=== PATIENT | female | born 1990 | race Caucasian/White ===

== ENCOUNTER 2016-05-17 08:00 | Outpatient (CLI) | payer OTHER | END 2016-05-17 08:01 | disposition home or self-care (01) | DX: Z11.3 Encounter for screening for infections with a predominantly sexual mode of transmission (principal) ==

== ENCOUNTER 2016-05-17 11:58 | Outpatient (CLI) | payer OTHER | END 2016-05-17 11:59 | disposition home or self-care (01) | DX: Z36 Encounter for antenatal screening of mother (principal) ==

== ENCOUNTER 2016-05-31 11:53 | Outpatient (CLI) | payer OTHER | END 2016-05-31 11:54 | disposition home or self-care (01) | DX: Z01.89 Encounter for other specified special examinations (principal); Z36 Encounter for antenatal screening of mother ==

== ENCOUNTER 2016-06-07 12:03 | Outpatient (CLI) | payer OTHER | END 2016-06-07 12:04 | disposition home or self-care (01) | DX: Z36 Encounter for antenatal screening of mother (principal) ==

== ENCOUNTER 2016-08-10 09:57 | Outpatient (CLI) | payer OTHER | END 2016-08-10 09:58 | disposition home or self-care (01) | DX: Z36 Encounter for antenatal screening of mother (principal) ==

== ENCOUNTER 2016-09-22 12:50 | Outpatient (CLI) | payer OTHER | END 2016-09-22 12:51 | disposition home or self-care (01) | DX: Z36 Encounter for antenatal screening of mother (principal) ==

== ENCOUNTER 2016-10-01 08:10 | Outpatient (CLI) | payer OTHER ==
[2016-10-01 08:59] LABS: GTT GLUCOSE,FASTING 91 mg/dL (70-100)
== END 2016-10-01 08:11 | disposition home or self-care (01) ==
LOC: LAB 08:10
PROVIDERS: ATTEND Nurse Practitioner Obstetrics & Gynecology
DX: R73.02 Impaired glucose tolerance (oral) (principal)
CPT/HCPCS: 36415; 82951

== ENCOUNTER 2016-11-22 08:00 | Outpatient (CLI) | payer OTHER | END 2016-11-22 08:01 | disposition home or self-care (01) | LOC: LAB.R 08:00 | PROVIDERS: ATTEND Nurse Practitioner Obstetrics & Gynecology | DX: R35.0 Frequency of micturition (principal) | CPT/HCPCS: 87086 ==

== ENCOUNTER 2016-11-29 08:44 | Outpatient (CLI) | payer OTHER | END 2016-11-29 08:45 | disposition home or self-care (01) | LOC: LAB.R 08:44 | PROVIDERS: ATTEND Nurse Practitioner Obstetrics & Gynecology | DX: Z36 Encounter for antenatal screening of mother (principal) | CPT/HCPCS: 87797 ==

== ENCOUNTER 2016-12-08 13:45 | Outpatient (CLI) | payer OTHER ==
[2016-12-08 14:20] LABS: BASOPHILS % (AUTO) 0.4 %; EOSINOPHILS # (AUTO) 0.1 10^3/uL (0.0-0.7); EOSINOPHILS % (AUTO) 0.8 %; HCT - HEMATOCRIT 40.9 % (37.0-47.0); HGB - HEMOGLOBIN 14.1 g/dL (12.0-16.0); LYMPHOCYTES # (AUTO) 2.3 10^3/uL (1.5-3.5); LYMPHOCYTES % (AUTO) 21.3 %; MEAN CORPUSCULAR HEMOGLOBIN 30.5 pg (27.0-31.0); MEAN CORPUSCULAR HGB CONC 34.4 g/dL (32.0-36.0); MEAN CORPUSCULAR VOLUME 88.6 fL (81.0-99.0); MEAN PLATELET VOLUME 9.8 fL (7.9-10.8); MONOCYTES # (AUTO) 0.5 10^3/uL (0.0-1.0); MONOCYTES % (AUTO) 4.9 %; NEUTROPHILS # (AUTO) 7.8 10^3/uL (1.5-6.6); NEUTROPHILS % (AUTO) 72.6 %; NUCLEATED RED BLOOD CELLS AUTO 0.1 /100WBC; RED BLOOD COUNT 4.62 10^6/uL (4.20-5.40); RED CELL DISTRIBUTION WIDTH 13.4 % (12.0-15.0); UNCORRECTED WHITE BLOOD COUNT 10.7 x10^3/uL; WHITE BLOOD COUNT 10.7 x10^3/uL (4.8-10.8)
[2016-12-08 14:27] LABS: CREATININE 0.7 mg/dL (0.4-1.0); URIC ACID 5.2 mg/dL (2.6-7.2)
== END 2016-12-08 13:46 | disposition home or self-care (01) ==
LOC: LAB 13:45
PROVIDERS: ATTEND Nurse Practitioner Obstetrics & Gynecology
DX: O12.03 Gestational edema, third trimester (principal)
CPT/HCPCS: 36415; 82565; 84450; 84460; 84550; 85025

== ENCOUNTER 2016-12-08 13:56 | Outpatient (CLI) | payer OTHER | END 2016-12-08 13:57 | LOC: LAB.R 13:56 | PROVIDERS: ATTEND Nurse Practitioner Obstetrics & Gynecology | DX: R82.99 Other abnormal findings in urine (principal) | CPT/HCPCS: 81001; 87086 ==

== ENCOUNTER 2016-12-20 10:30 | Inpatient (IN) | payer OTHER ==
[2016-12-20] MEDS ORDERED: SODIUM CHLORIDE FLUSH 0.9% 10 ML SYRINGE IVP ONE (11:20)
[2016-12-20] MEDS ORDERED: LACTATED RINGERS 1,000 ML IV ONE ×3 (11:20→14:02)
[2016-12-20 11:58] LABS: BASOPHILS # (AUTO) 0.1 10^3/uL (0.0-0.1); EOSINOPHILS # (AUTO) 0.1 10^3/uL (0.0-0.7); EOSINOPHILS % (AUTO) 0.8 %; HCT - HEMATOCRIT 42.5 % (37.0-47.0); HGB - HEMOGLOBIN 14.6 g/dL (12.0-16.0); LYMPHOCYTES # (AUTO) 2.3 10^3/uL (1.5-3.5); LYMPHOCYTES % (AUTO) 22.7 %; MEAN CORPUSCULAR HEMOGLOBIN 30.4 pg (27.0-31.0); MEAN CORPUSCULAR HGB CONC 34.4 g/dL (32.0-36.0); MEAN CORPUSCULAR VOLUME 88.3 fL (81.0-99.0); MEAN PLATELET VOLUME 9.7 fL (7.9-10.8); MONOCYTES # (AUTO) 0.6 10^3/uL (0.0-1.0); MONOCYTES % (AUTO) 6.1 %; NEUTROPHILS # (AUTO) 6.9 10^3/uL (1.5-6.6); NEUTROPHILS % (AUTO) 69.4 %; NUCLEATED RED BLOOD CELLS AUTO 0.1 /100WBC; RED BLOOD COUNT 4.81 10^6/uL (4.20-5.40); RED CELL DISTRIBUTION WIDTH 13.5 % (12.0-15.0); UNCORRECTED WHITE BLOOD COUNT 9.9 x10^3/uL; WHITE BLOOD COUNT 9.9 x10^3/uL (4.8-10.8)
[2016-12-20] MEDS ORDERED: SODIUM CHLORIDE FLUSH 0.9% 10 ML SYRINGE IVP PRN (12:12)
[2016-12-20] MEDS ORDERED: CITRIC ACID/SODIUM CITRATE 15 ML UDC PO SCH (12:17)
--- NOTE | 2016-12-20 12:32 | PROVIDER PROGRESS NOTE ---
Subjective - Prog Note Date Prog Note Date: 12/20/16 Prog Note Time: 12:31 - Subjective Pt reports feeling: No change Objective - Vital Signs/Intake & Output Vital Signs: Vital Signs x48h Temp Pulse Resp BP 12/20/16 12:02 99.1 F 101 H 18 123/79 - Lab Results Fish Bones: 12/20/16 11:48 12/20/16 11:48 Other Labs: Lab Results x24hrs 12/20/16 12/20/16 Range/Units 11:48 11:48 WBC 9.9 (4.8-10.8) x10^3/uL RBC 4.81 (4.20-5.40) 10^6/uL Hgb 14.6 (12.0-16.0) g/dL Hct 42.5 (37.0-47.0) % MCV 88.3 (81.0-99.0) fL MCH 30.4 (27.0-31.0) pg MCHC 34.4 (32.0-36.0) g/dL RDW 13.5 (12.0-15.0) % Plt Count 196 (130-450) 10^3/uL MPV 9.7 (7.9-10.8) fL Neut # 6.9 H (1.5-6.6) 10^3/uL Lymph # 2.3 (1.5-3.5) 10^3/uL [place] # 0.6 (0.0-1.0) 10^3/uL Eos # 0.1 (0.0-0.7) 10^3/uL Baso # 0.1 (0.0-0.1) 10^3/uL Absolute Nucleated RBC 0.01 x10^3/uL Nucleated RBCs 0.1 /100WBC Glucose 87 (70-100) mg/dL Assessment/Plan - Problem List (1) Macrosomia affecting management of mother in third trimester Impression: 26 yo with a 39w0d IUP Suspected macrosomia, EFW 4563 gm (AC OOR in > 97.7%centile) Proceed to a Delivery at 13:00 Laboratory Results - last 24 hr 12/20/16 12/20/16 11:48 11:48 WBC 9.9 RBC 4.81 Hgb 14.6 Hct 42.5 MCV 88.3 MCH 30.4 MCHC 34.4 RDW 13.5 Plt Count 196 MPV 9.7 Neut # 6.9 H Lymph # 2.3 [place] # 0.6 Eos # 0.1 Baso # 0.1 Absolute Nucleated RBC 0.01 Nucleated RBCs 0.1 Glucose 87
[2016-12-20] MEDS ORDERED: MORPHINE PF 5 MG/10 ML AMP EP ONE (12:50)
[2016-12-20] MEDS ORDERED: OXYTOCIN 10 UNIT/ML VIAL IV ONE (12:50)
[2016-12-20] MEDS ORDERED: NALOXONE 0.4 MG/ML VIAL IVP ONE (12:50)
[2016-12-20] MEDS ORDERED: ACETAMINOPHEN 1,000 MG/100 ML VIAL IV ONE (12:50)
[2016-12-20] MEDS ORDERED: ONDANSETRON 4 MG/2 ML VIAL IVP ONE (12:50)
[2016-12-20] MEDS ORDERED: ePHEDrine 50 MG/ML VIAL IVP ONE (12:50)
[2016-12-20] MEDS: LACTATED RINGERS 1,000 ML IV SCH ×2 (12:53→18:56)
[2016-12-20] MEDS ORDERED: CITRIC ACID/SODIUM CITRATE 15 ML UDC PO ONE (12:55)
[2016-12-20] MEDS ORDERED: OXYTOCIN/LACTATED RINGERS 250 ML IV SCH (13:00)
--- NOTE | 2016-12-20 13:21 | PREOP HISTORY & PHYSICAL ---
DATE OF ADMISSION/SURGERY: 12/20/2016 IDENTIFICATION: This is a 26-year-old G2, P0-0-1-0 with a 39-0/7 week intrauterine , EDC is 12/27/2016, consistent with an 8-week ultrasound. HISTORY OF PRESENT ILLNESS: This is a patient of [facility] with whom we have been seeing throughout her entire course. It has been noted that her baby has been growing excessively since about 32 weeks' gestation. Fundal height has consistently been greater than the estimated gestational age. At 34 weeks' gestation, the estimated weight was 2986 grams. At 37 weeks, estimated weight was 3651 grams or 8 pounds 1 ounce with AC greater than 97.7 percentile. CHIKIS measuring 11.7 cm. Today on 39 week ultrasound, the baby was weighing greater than 90th percentile with an EFW of 4563 grams or 10 pounds 1 ounce, biparietal diameter is in the 90.2 percentile, and the head circumference is in the greater than 97.7 percentile age out of range. Finally, the abdominal circumference is greater than 97.7 percentile and also out of range. Given this concerning growth, I explained to the patient I feel it is in her best interest to undergo a primary delivery. What I am specifically concerned about is that she would have a significant shoulder dystocia. The result of a shoulder dystocia could be a permanent paralysis of the brachial nerve plexus as well as significant proctovaginal tearing as well as a periurethral or vaginal cystic laceration that could lead to rectal or fecal incontinence. I discussed with the patient the risks, benefits, alternatives, indications and expectations of a primary delivery. Included in our discussion were the risk of hemorrhage, infection, and damage to surrounding organs, which would be an inadvertent laceration, cauterization or ligation of adjacent bladder, intestines or ureters. Also with surgery, nerves would be cut and there is a chance that her nerve sensation would be irregular or she may not have any sensation in that area where the skin was cut. Finally, with this procedure, I would suspect that she would be a poor candidate for a vaginal trial after delivery and would be required to have scheduled deliveries. After all the patient's questions were answered to her satisfaction, she verbalized her desire to proceed with surgery today. Consent forms have been signed. Anticipate proceeding to primary delivery today at 1300 hours. We will give the patient 2 grams of Ancef IV for postoperative cellulitis prophylaxis, as well as sequential compression devices. PAST MEDICAL HISTORY 1. Headaches. 2. Acne. PAST SURGICAL HISTORY: On 12/26/2015, dilatation and curettage. SOCIAL HISTORY: She is a former smoker, quit greater than 5 years ago. She is to Ed, and this is a baby boy with anticipated name of andrea Denney. ALLERGIES: NO KNOWN DRUG ALLERGIES. MEDICATIONS 1. vitamins. 2. Zantac. 3. P.r.n. Diflucan. 4. P.r.n. nystatin cream. PAST GYNECOLOGICAL HISTORY: All Paps smears have been within normal limits. She denies any STDs. She has a 32-34 day menstrual cycle. FAMILY HISTORY 1. Paternal grandmother of brain cancer at age 40. 2. Paternal aunt had breast cancer. REVIEW OF SYSTEMS: Negative unless otherwise noted. No nausea, vomiting, fevers or chills. PHYSICAL EXAMINATION VITAL SIGNS: Height is 63 inches, weight is 265 pounds, BMI is 47. Blood pressure 122/78. GENERAL: The patient is a well-developed, well-nourished female in no apparent distress. She is alert and oriented x3. The patient is very intelligent and easy to speak to. HEENT: Within normal limits. She does wear glasses. CARDIOVASCULAR: Rate is regular, no murmurs or rubs. PULMONARY: Lungs clear to auscultation bilaterally. ABDOMEN: Gravid, nontender. Fundal height is 48 cm today. The baby is vertex on ultrasound. Fluid is grossly normal. I did not do a complete amniotic fluid index measurement but it is at least 5 cm. LABORATORY DATA: labs show she is chlamydia and gonorrhea negative. She is O positive. RPR nonreactive, rubella immune, hepatitis B surface antigen is negative. anatomical survey was consistent with dates and within normal limits. Posterior placenta. A 1-hour GTT is 142, 3-hour shows a fasting of 91, a 1-hour at 164, 2-hour at 142, 3-hour of 105. [place] is negative and showing a male fetus. GBS is negative. ASSESSMENT 1. A 26-year-old G2, P0-0-1-0 with 39-0/7 week intrauterine . 2. Suspected macrosomia with an EFW of 4563 g. PLAN 1. We will proceed to a scheduled primary delivery. 2. Anticipate aggressive pain control with NSAIDs and acetaminophen after surgery, along with p.r.n. narcotics. 3. Deep venous thrombosis prophylaxis. 4. Cefazolin 2 grams IV prior to skin incision. 5. We will be cognizant of hemorrhage given the large estimated weight. JOB #: [id number] EXT JOB #:[id number] NA
[2016-12-20] MEDS ORDERED: BUPIVACAINE 0.25% PF 30 ML VIAL SUBQ ONE (14:39)
[2016-12-20] MEDS ORDERED: MAGNESIUM HYDROXIDE 2,400 MG/30 ML UDC PO PRN (15:25)
[2016-12-20] MEDS ORDERED: ONDANSETRON 4 MG/2 ML VIAL IVP PRN (15:25)
--- NOTE | 2016-12-20 15:41 | OPERATIVE REPORT ---
Operative Report - General Admit Date: 12/20/16 - Other Other Information/Narrative: Date of Operation: 12/20/2016 Surgeon: Susie ROMANOOG Fire Sprinkler Installer: NORM Castro Management Engineer: Chai Chung CRNA and Carlos Alberto Liriano CRNA Anesthesia: Spinal x 2 attempts Pre-op Dx: 1. 26 yo with a 39w0d IUP 2. Suspected macrosomia Post-op Dx: 1. 26 yo with a 39w0d IUP 3. Suspected macrosomia Procedure: Primary Delivery Findings: Viable male , "Олег" in VTX presentation but LOP. Apgars 8/ 8. Weight 9 lbs, 13oz. Normal uterus, fallopian tubes and ovaries. Specimens: 1. Placenta (to medical waste) 2. Cord blood Drains: 1. Prevena wound vac 2. Raphael to gravity EBL: 700 mL Complications: None Dictation: [id number]
--- NOTE | 2016-12-20 16:12 | OPERATIVE REPORT ---
DATE OF SURGERY: 12/20/2016 00:00:00 SURGEON: Susie Ortiz DO, FACOG. FRUIT GROWER: NORM Castro. ANESTHETISTS: 1. Chai Chung CRNA 2. Carlos Alberto Liriano: JENNIFER ANESTHESIA: Spinal x2 attempts. PREOPERATIVE DIAGNOSES 1. A 26-year-old G2, P0-0-1-0 with 39-0/7 week intrauterine . 2. Suspected macrosomia. POSTOPERATIVE DIAGNOSES 1. A 26-year-old G2, P0-0-1-0 with 39-0/7 week intrauterine . 2. Suspected macrosomia. NAME OF PROCEDURE: Primary delivery. FINDINGS: A viable male in vertex presentation, but with occiput posterior, named Олег. Apgars 8 and 8 at 1 and 5 minutes respectively and weight is 9 pounds 13 ounces. Normal uterus, fallopian tubes, and ovaries were seen. SPECIMENS 1. Placenta to medical waist. 2. Cord blood to lab. DRAINS 1. Prevena wound VAC. 2. Raphael catheter to gravity. ESTIMATED BLOOD LOSS: 700 mL. COMPLICATIONS: None. BRIEF HISTORY: She is a patient at [facility] with whom we have been seeing throughout her entire course. Her record was only significant for an elevated 1-hour GTT. Her 3-hour GTT was normal. Also , at about 34 weeks gestation, she started to show significant growth with a size greater than dates. Today at 39 weeks' gestation, the baby's head circumference, as well as abdominal circumference were out of range. Estimated weight was about 10 pounds 1 ounce. I discussed with the patient my recommendations to proceed with a delivery. Included in our discussion were the risk of hemorrhage, infection, and damage to surrounding organs, which may be an inadvertent laceration, cauterization or ligation of adjacent intestines, bladder or ureters. Furthermore, given the indication for the delivery, I would recommend her to have repeat delivery for any more children that she may have. After the patient's questions were answered to her satisfaction, she verbalized her desire to proceed with surgery. Consent forms have been signed. OPERATION IN DETAIL: The patient was identified, consented, and taken to the operating room where IV access was already in place. She was given Bicitra prior to coming to the operating room. She was then given spinal anesthesia by Chai Chung and then sequential compression devices, which were placed on her lower extremities and turned on. A Raphael catheter was placed in her bladder. She was then prepped and draped in the normal sterile fashion in the dorsal supine position with a leftward tilt. Skin testing was inadequate, particularly since she was able to move her feet quite well. A second attempt of spinal anesthesia by Carlos Alberto Liriano was satisfactory. She was then reprepped and draped in a sterile fashion in dorsal supine position with a leftward tilt. Repeat skin testing was successful at this time. She was then given 2 grams of Ancef for postoperative cellulitis prophylaxis. A time-out was performed, which correctly identified the patient, the site of the procedure, and the procedure itself. A Pfannenstiel skin incision was made approximately 2 fingerbreadths above the level of the pubic symphysis. This incision was then carried to the underlying layer of fascia with electrocautery. Fascia was then nicked in midline and extended laterally. Rectus muscles were then dissected off the fascia. The rectus muscles were then bluntly in midline and peritoneum entered bluntly as well. This incision was extended superiorly and inferiorly. A bladder flap was then created by dissecting off the vesicouterine peritoneum. Hysterotomy was made in the lower uterine segment in a transverse fashion. The lower uterine segment definitely was thinned out, suspicious of a laboring uterus. Amniotomy revealed clear fluid. With the help of fundal pressure, the 's head delivered easily through the hysterotomy. Nose and mouth were suctioned with a bulb syringe. A nuchal cord x1 was noted, but delivered through. Again, with the help of fundal pressure, the rest of the infant delivered easily without difficulty. The nose and mouth were suctioned with the bulb syringe. The umbilical cord was doubly clamped and cut and the infant was then handed off to Dr. Vo, the awaiting on-call assistant community director. Cord blood was then obtained and sent off. The uterus was then internally massaged and placenta delivered manually. Uterus was then delivered out the abdomen and cleared of all clots and debris. Hysterotomy was repaired with 2 sutures of 0 Vicryl, first in a running locked fashion and then in an imbricating fashion using the Lembert stitch. Hemostasis was noted. The uterus was then returned to the abdomen and copiously irrigated. Hemostasis was noted. Peritoneum was closed with a running stitch of 2-0 Vicryl and the same stitch was used to reapproximate the rectus muscles. Fascia was then closed with 0 Vicryl in a running fashion. The Camper's fascia was then reapproximated with interrupted stitches of 2-0 Vicryl. The skin was then reapproximated with 4-0 Monocryl in subcuticular fashion and then the incision was anesthetized with local 1% lidocaine, approximately a total of 30 mL. Finally, a Prevena wound VAC was placed on the incision and turned on. The patient tolerated the procedure well, was taken back to the recovery room in awake and stable condition. She will be given routine care including around the clock NSAIDS and Tylenol. She will also be given oxycodone for any breakthrough pain that she may have. All sponge, lap and needle counts were correct x2 as per nurse report. JOB #: [id number] EXT JOB #:[id number] NA
[2016-12-20] MEDS: ceFAZolin 2 GM/50 ML 50 ML IV SCH ×2 (18:55→22:02)
[2016-12-20] MEDS ORDERED: KETOROLAC 30 MG/ML VIAL IVP SCH (20:00)
[2016-12-20] MEDS: oxyCODONE 5 MG TABLET PO SCH ×2 (21:39→22:06)
[2016-12-20] MEDS: CELECOXIB 100 MG CAPSULE PO SCH (21:39)
[2016-12-20] MEDS: SIMETHICONE CHEW 80 MG TABLET PO SCH (21:39)
[2016-12-20] MEDS: DOCUSATE SODIUM 100 MG CAPSULE PO SCH (21:39)
[2016-12-20] MEDS: ACETAMINOPHEN 500 MG TABLET PO SCH (22:25)
[2016-12-21] MEDS: oxyCODONE 5 MG TABLET PO SCH ×5 (03:41→23:03)
[2016-12-21] MEDS: ACETAMINOPHEN 500 MG TABLET PO SCH ×2 (06:08→13:57)
--- NOTE | 2016-12-21 08:41 | PROVIDER PROGRESS NOTE ---
Subjective - Prog Note Date Prog Note Date: 12/21/16 Prog Note Time: 08:39 - Subjective Pt reports feeling: Improved Subjective: Patient in bed with baby on [place]. Still trying to learn to breast feed. Raphael catheter out. Has dangled legs. Incision more painful on left side. Current Medications - Current Medications Current Medications: Routine Celebrex, acetaminophen, colace and oxycodone Objective - Vital Signs/Intake & Output Reviewed Vital Signs: Yes Vital Signs: Vital Signs x48h Temp Pulse Resp BP Pulse Ox 12/21/16 07:46 98.4 F 78 18 112/67 98 12/21/16 04:00 98.6 F 81 20 105/63 96 Intake & Output: Intake & Output 12/18/16 12/19/16 12/20/16 12/21/16 23:59 23:59 23:59 23:59 Intake Total 2300 2800 Output Total 600 1750 Balance 1700 1050 - Objective General Appearance: positive: No acute distress Eyes Bilateral: positive: Normal inspection Abdomen: positive: Non-tender (Appropriate tenderness. Wound vac in place and working well.) Neurologic/Psychiatric: positive: Oriented x3 - Lab Results Fish Bones: 12/20/16 11:48 12/20/16 11:48 Other Labs: Lab Results x24hrs 12/20/16 12/20/16 12/20/16 Range/Units 11:48 11:48 11:48 WBC 9.9 (4.8-10.8) x10^3/uL RBC 4.81 (4.20-5.40) 10^6/uL Hgb 14.6 (12.0-16.0) g/dL Hct 42.5 (37.0-47.0) % MCV 88.3 (81.0-99.0) fL MCH 30.4 (27.0-31.0) pg MCHC 34.4 (32.0-36.0) g/dL RDW 13.5 (12.0-15.0) % Plt Count 196 (130-450) 10^3/uL MPV 9.7 (7.9-10.8) fL Neut # 6.9 H (1.5-6.6) 10^3/uL Lymph # 2.3 (1.5-3.5) 10^3/uL [place] # 0.6 (0.0-1.0) 10^3/uL Eos # 0.1 (0.0-0.7) 10^3/uL Baso # 0.1 (0.0-0.1) 10^3/uL Absolute Nucleated RBC 0.01 x10^3/uL Nucleated RBCs 0.1 /100WBC Glucose 87 (70-100) mg/dL Blood Type O POSITIVE Antibody Screen NEGATIVE Assessment/Plan - Problem List (1) delivery delivered Impression: 26 yo S/p primary CD 12/21/2016, POD #1 Normal recovery Routine care Shower today Remove saline lock Continue breast feeding attempts (2) Macrosomia affecting management of mother in third trimester Impression: Delivered
[2016-12-21] MEDS: CELECOXIB 100 MG CAPSULE PO SCH (08:53)
[2016-12-21] MEDS: DOCUSATE SODIUM 100 MG CAPSULE PO SCH (08:58)
[2016-12-21] MEDS: SIMETHICONE CHEW 80 MG TABLET PO SCH ×2 (09:07→18:46)
[2016-12-22] MEDS: ACETAMINOPHEN 500 MG TABLET PO SCH ×3 (02:21→18:52)
[2016-12-22] MEDS: DOCUSATE SODIUM 100 MG CAPSULE PO SCH ×3 (02:22→20:48)
[2016-12-22] MEDS: CELECOXIB 100 MG CAPSULE PO SCH ×3 (02:22→20:48)
[2016-12-22] MEDS: SIMETHICONE CHEW 80 MG TABLET PO SCH ×4 (02:58→20:48)
[2016-12-22] MEDS: oxyCODONE 5 MG TABLET PO SCH ×5 (07:38→23:55)
[2016-12-22] MEDS ORDERED: POLYETHYLENE GLYCOL 3350 17 GM PACKET PO PRN (09:37)
--- NOTE | 2016-12-22 10:41 | PROVIDER PROGRESS NOTE ---
Subjective - Prog Note Date Prog Note Date: 12/22/16 Prog Note Time: 10:39 - Subjective Pt reports feeling: Improved Subjective: Patient in bed, visiting with , [id number] and friend. Did not get overnight meds as scheduled due to high patient census. Got pain meds this AM and feeling better. Baby Олег latching well. Lochia improving. Noting some terminal pain with voiding. No nausea or vomiting. Ambulating well. Desires to go home tomorrow. Current Medications - Current Medications Current Medications: Routine oxycodone, Celebrex, colace, Tylenol Objective - Vital Signs/Intake & Output Reviewed Vital Signs: Yes Vital Signs: Vital Signs x48h Temp Pulse Resp BP Pulse Ox 12/22/16 07:26 98.2 F 82 19 129/77 100 Intake & Output: Intake & Output 12/19/16 12/20/16 12/21/16 12/22/16 23:59 23:59 23:59 23:59 Intake Total 2300 3525 Output Total 600 3050 Balance 1700 475 - Objective General Appearance: positive: No acute distress Rectal: positive: Non-tender (Firm fundus, benign. Prevena wound vac intact and working well.) Neurologic/Psychiatric: positive: Oriented x3 - Lab Results Fish Bones: 12/20/16 11:48 12/20/16 11:48 Assessment/Plan - Problem List (1) delivery delivered Impression: 26 yo S/p primary CD 12/20/2016 for macrosomia Normal recovery Routine care Continue scheduled meds Anticipate home tomorrow (2) Macrosomia affecting management of mother in third trimester Impression: Delivered
[2016-12-23] MEDS: oxyCODONE 5 MG TABLET PO SCH ×6 (03:32→13:01)
[2016-12-23] MEDS: ACETAMINOPHEN 500 MG TABLET PO SCH ×2 (03:32→10:59)
--- NOTE | 2016-12-23 08:32 | PROVIDER PROGRESS NOTE ---
Subjective - Prog Note Date Prog Note Date: 12/23/16 Prog Note Time: 08:29 - Subjective Pt reports feeling: Improved Subjective: Patient in bed, about to eat breakfast. Doing well. Pain under control-- the evening before nursing did not give her her scheduled drugs and she was behind on pain. Ambulating and urinating without difficulty. Decreasing lochia. Baby eating in 1.5 hour blocks. Desires to go home. Objective - Vital Signs/Intake & Output Reviewed Vital Signs: Yes Vital Signs: Vital Signs x48h Temp Pulse Resp BP BP Pulse Ox 12/23/16 08:17 98.6 F 82 15 118/74 118/74 99 12/23/16 02:00 98.1 F 76 18 117/67 97 Intake & Output: Intake & Output 12/20/16 12/21/16 12/22/16 12/23/16 23:59 23:59 23:59 23:59 Intake Total 2300 3525 Output Total 600 3050 Balance 1700 475 - Objective General Appearance: positive: No acute distress Eyes Bilateral: positive: Normal inspection Abdomen: positive: Non-tender (Prevena wound vac in place and working well) Neurologic/Psychiatric: positive: Oriented x3 - Lab Results Fish Bones: 12/20/16 11:48 12/20/16 11:48 Assessment/Plan - Problem List (1) delivery delivered Impression: 26 yo S/p primary CD 12/20/2016, POD #3 Normal recovery Discharge to home Patient to remove Prevena wound vac over the weekend-- call if erythematous, edematous etc Return in 2 weeks for a routine incision check and in 6 weeks for a exam Call for worsening fevers, chills, abdominal pain or vaginal bleeding (2) Macrosomia affecting management of mother in third trimester Impression: Delivered
[2016-12-23] MEDS: CELECOXIB 100 MG CAPSULE PO SCH (08:39)
[2016-12-23] MEDS: DOCUSATE SODIUM 100 MG CAPSULE PO SCH (08:40)
[2016-12-23] MEDS: SIMETHICONE CHEW 80 MG TABLET PO SCH (08:43)
[2016-12-23 14:11] VITALS: BP 116/72
--- NOTE | 2016-12-23 14:27 | DISCHARGE SUMMARY ---
DATE OF ADMISSION: 12/20/2016 DATE OF DISCHARGE: 12/23/2016 DIAGNOSES ON ADMISSION 1. A 26-year-old G1, P0-0-1-0 with 39-0/7 week intrauterine . 2. Suspected macrosomia. DIAGNOSES ON DISCHARGE 1. A 26-year-old, G2, P1-0-1-1 status post primary delivery on 12/20/2016. 2. Normal recovery. BRIEF HISTORY: This is a patient of [facility] with whom she has been having consist ent regular care. We have been closely following Isha's progress. The patient did have an ep isode of intermittent elevated blood pressures, but workup for preeclampsia has been negative. In add ition to 37 weeks' gestation, we have been doing serial ultrasounds. Baby Олег has been measuring on the larger side. At 37 weeks, an estimated weight was 3651 grams with abdominal circumferenc e greater than 98th percentile. CHIKIS was 11.4 cm. Repeat ultrasound at 39 weeks showed that the estima belen weight was 4553 grams with both the abdominal circumference and the head circumference grea ter than 98th percentile. Given the suspicion of macrosomia, I recommended the patient to under go a primary delivery. The patient was admitted to the hospital on 12/20/2016 and underwent an unremarkable deliver y. She had a viable male named Олег. Apgars were 8 and 8 at 1 and 5 minutes, respectively, and he weighed 9 pounds 13 ounces. EBL was 700 mL. There were no complications. The patient did recei ve a Prevena wound VAC. Her course has been unremarkable. She is ambulating and tolerating a regular diet. She is urinating without difficulty, and her pain is controlled with oral medications. Baby Олег is latch ing well and is growing appropriately. The patient is anticipated to go home on postoperative day #3. She has been given prescriptions for C olace, ibuprofen, acetaminophen, and oxycodone for postoperative pain. I expect to see her in 1-2 day s for removal of Prevena wound VAC. She is going to see me for routine incision check in 2 weeks and in 6 weeks for a routine examination. She is to call should she have any worsening fevers, chills, abdominal pain or vaginal bleeding. JOB #: [id number] EXT JOB #:[id number]
== END 2016-12-23 13:50 | disposition home or self-care (01) | DRG 766 ==
LOC: FBP 11:00
PROVIDERS: ADMIT Obstetrics & Gynecology; ATTEND Obstetrics & Gynecology
PROC: 10D00Z1 Extraction of Products of Conception, Low, Open Approach (ICD-10-PCS; principal; 2016-12-20 13:00)
DX: O33.5XX0 Maternal care for disproportion due to unusually large fetus, not applicable or unspecified (principal); O64.0XX0 Obstructed labor due to incomplete rotation of fetal head, not applicable or unspecified; O69.82X0 Labor and delivery complicated by other cord entanglement, without compression, not applicable or unspecified; Z3A.39 39 weeks gestation of pregnancy; Z37.0 Single live birth
CPT/HCPCS: 36415; 82947; 85025; 86850; 86900; 86901